=== PATIENT | male | born 1995 | race Native Hawaiian/Other Pacific Islander ===

== ENCOUNTER 2016-10-17 01:11 | Emergency (ER) | payer OTHER ==
[~2016-10-17] VITALS: Ht 175.3 cm; Wt 113.4 kg
[2016-10-17 01:39] LABS: PLATELET COUNT 290 K/uL (142-355)
[2016-10-17 01:50] LABS: POTASSIUM 4.1 mmol/L (3.6-5.2); SODIUM 132 mmol/L (136-145)
== END 2016-10-17 02:20 | disposition home or self-care (01) ==
LOC: ED 01:11
DX: K52.9 Noninfective gastroenteritis and colitis, unspecified (principal)
CPT/HCPCS: 36415; 80053; 85027; 87081; 87804; 87880; 99283